=== PATIENT | female | born 1990 | race Asian ===

== ENCOUNTER 2017-03-02 20:56 | Emergency (ER) | payer BC ==
[~2017-03-02] VITALS: Ht 157.5 cm; Wt 56.7 kg
[2017-03-02 21:03] VITALS: BP 128/87
--- NOTE | 2017-03-02 21:35 | PHYS DOC ---
Past Medical History Past Medical History: No Pertinent History Past Surgical History: Alcohol Use: None Drug Use: None Adult General Chief Complaint Chief Complaint: ABDOMINAL PAIN HPI HPI Patient is a 26 year old female who presents with complaint of lower abdominal pain and pelvic pain that started earlier today. Patient states that she is having dull constant pain which travels into her back. Patient states that she has had intermittent back pain in the past but has not had associated pelvic pain like she is experiencing at this time. Patient rates her pain currently as 7 out of 10. Patient does admit that she has had abnormal vaginal discharge but denies any abnormal vaginal bleeding. Patient states that her last menstrual period ended one week ago. Patient has not had any fevers, constipation, diarrhea, bloody stools. Patient does admit to nausea and vomiting 2 episodes. Patient has not taken any medications to help with her symptoms at this time. Patient denies any known exacerbating factors for her pain. Review of Systems Review of Systems Constitutional: Denies fever or chills [] Eyes: Denies change in visual acuity, redness, or eye pain [] HENT: Denies nasal congestion or sore throat [] Respiratory: Denies cough or shortness of breath [] Cardiovascular: Denies chest pain or edema [] GI: Abdominal pain, nausea, vomiting, denies bloody stools or diarrhea [] : Abnormal vaginal discharge, denies dysuria or hematuria [] Musculoskeletal: Back pain, denies joint pain [] Integument: Denies rash or skin lesions [] Neurologic: Denies headache, focal weakness or sensory changes [] Endocrine: Denies polyuria or polydipsia [] Current Medications Current Medications Current Medications Medications (Trade) Dose Ordered Sig/[facility] Start Time Stop Time Status Last Admin Dose Admin Fluconazole (Diflucan) 150 mg 1X ONCE 03/02/17 23:00 03/02/17 23:01 Ondansetron HCl (Zofran) 4 mg 1X ONCE 03/02/17 23:00 03/02/17 23:01 Allergies Allergies Allergies Coded Allergies Type Severity Reaction Last Updated Verified No Known Drug Allergies 03/02/17 No Physical Exam Physical Exam Constitutional: Well developed, well nourished, no acute distress, non-toxic appearance. [] HENT: Normocephalic, atraumatic, bilateral external ears normal, oropharynx moist, no oral exudates, nose normal. [] Eyes: PERRLA, EOMI, conjunctiva normal, no discharge. [] Neck: Normal range of motion, no tenderness, supple, no stridor. [] Cardiovascular:Heart rate regular rhythm, no murmur [] Lungs & Thorax: Bilateral breath sounds clear to auscultation [] Abdomen: Bowel sounds normal, soft, no tenderness, no masses, no pulsatile masses. Pelvic: Normal external exam, clearish vaginal discharge present in vaginal canal, no vaginal bleeding, no cervical motion tenderness, midline tenderness on bimanual exam, no adnexal tenderness. [] Skin: Warm, dry, no erythema, no rash. [] Back: No tenderness, no CVA tenderness. [] Extremities: No tenderness, no cyanosis, no clubbing, ROM intact, no edema. [] Neurologic: Alert and oriented X 3, normal motor function, normal sensory function, no focal deficits noted. [] Current Patient Data Vital Signs Vital Signs Date Time Temp Pulse Resp B/P Pulse Ox O2 Delivery O2 Flow Rate FiO2 03/02/17 21:03 97.5 72 16 128/87 99 Room Air 97.5 Lab Values Laboratory Tests Test 03/02/17 20:53 03/02/17 21:45 POC Urine HCG, Qualitative Hcg negative (Negative) Urine Collection Type Unknown Urine Color Yellow Urine Clarity Clear Urine pH 6.0 Urine Specific [place] 1.020 Urine Protein Negativemg/dL (NEG-TRACE) Urine Glucose (UA) Negativemg/dL (NEG) Urine Ketones (Stick) Negativemg/dL (NEG) Urine Blood Negative (NEG) Urine Nitrite Negative (NEG) Urine Bilirubin Negative (NEG) Urine Urobilinogen Dipstick 0.2mg/dL (0.2 mg/dL) Urine Leukocyte Esterase Negative (NEG) Urine RBC 0/HPF (0-2) Urine WBC 0/HPF (0-4) Urine Squamous Epithelial Cells Mod/LPF Urine Bacteria 0/HPF (0-FEW) Urine Mucus Slight/LPF Urine Yeast Present/HPF Microbiology 03/02/17 Wet Prep - Final, Complete Microbiology 03/02/17 Wet Prep - Final, Complete EKG EKG Not performed [] Radiology/Procedures Radiology/Procedures Not performed [] Course & Med Decision Making Course & Med Decision Making Pertinent Labs and Imaging studies reviewed. (See chart for details) Patient's wet prep was positive for candidiasis. Patient treated with Diflucan in the emergency department. The patient's exam is benign and the patient's vital signs are stable at this time. Patient will be treated as outpatient for her symptoms with recommended follow-up in 2-3 days if symptoms are not improving and return to emergency department for any worsening symptoms. Patient voiced understanding and in agreement with treatment plan. Dragon Disclaimer Dragon Disclaimer This electronic medical record was generated, in whole or in part, using a voice recognition dictation system. Departure Departure Impression: Primary Impression: Vaginal candidiasis Additional Impressions: Nausea and vomiting Abdominal pain Disposition: HOME, SELF-CARE Condition: IMPROVED Referrals: ROSI CALL MD (PCP) Patient Instructions: Abdominal Pain (Nonspecific), Candidal Vulvovaginitis, [id number], Nausea and Vomiting Additional Instructions: Follow-up with your primary doctor in 2-3 days. Return to the emergency department for any worsening symptoms. Scripts Ibuprofen 600 Mg [id number] Mg PO PRN Q6HRS PRN INFLAMMATION #30 TAB Prov:ELSI ARREDONDO MD 03/02/17 Ondansetron (Zofran Odt)4 Mg Tab.rapdis1 Tab SL Q8HRS #15 TAB Prov:ELSI ARREDONDO MD 03/02/17 Dicyclomine Hcl (Bentyl)10 Mg Capsule1 Cap PO TID #30 CAP Ref 0 Prov:ELSI ARREDONDO MD 03/02/17 Problem Qualifiers Additional Impressions: Nausea and vomiting Vomiting type: unspecified Vomiting Intractability: non-intractable Qualified Code: R11.2 - Nausea with vomiting, unspecified Abdominal pain Abdominal location: lower abdomen, unspecified Qualified Code: R10.30 - Lower abdominal pain, unspecified ELSI ARREDONDO MD Mar 02, 2017 21:35
[2017-03-02 21:55] LABS: BILIRUBIN,URINE NEGATIVE (NEG); GLUCOSE,URINE NEGATIVE (NEG); NITRITE,URINE NEGATIVE (NEG); PROTEIN,URINE NEGATIVE (NEG-TRACE); UROBILINOGEN,URINE 0.2 mg/dL (0.2 mg/dL)
[2017-03-02 22:08] LABS: BACTERIA,URINE 0 /HPF (0-FEW); RBC,URINE 0 /HPF (0-2); SQUAMOUS EPITHELIAL CELL,UR MOD /LPF; WBC,URINE 0 /HPF (0-4); YEAST,URINE PRESENT /HPF
[2017-03-02] MEDS ORDERED: ONDA4TAB10 SL (22:30)
[2017-03-02] MEDS ORDERED: IBUP-1007 PO (22:30)
[2017-03-02] MEDS ORDERED: DICY10CA53 PO (22:30)
[2017-03-02] MEDS ORDERED: ONDANSETRON PF 4 MG/2 ML VIAL. IV ONE (23:00)
[2017-03-02] MEDS ORDERED: FLUCONAZOLE 100 MG TABLET. PO ONE (23:00)
[2017-03-02] MEDS ORDERED: ONDANSETRON ODT 4 MG TAB.RAPDIS. PO ONE (23:00)
== END 2017-03-02 22:57 | disposition home or self-care (01) ==
LOC: ER 20:56
DX: B37.3 Candidiasis of vulva and vagina (principal); R11.2 Nausea with vomiting, unspecified
CPT/HCPCS: 81001; 81025; 99284; Q0111; Q0162; 87491; 87591

== ENCOUNTER 2019-05-14 17:31 | Emergency (ER) | payer BC ==
[~2019-05-14] VITALS: Ht 157.5 cm; Wt 62.6 kg
[~2019-05-14 17:31] MED LIST: DICY10CA53 PO; IBUP-1007 PO; ONDA4TAB10 SL
[2019-05-14 17:39] VITALS: BP 148/88
[2019-05-14] MEDS ORDERED: PRED20TA PO (18:04)
--- NOTE | 2019-05-14 18:04 | PHYS DOC ---
Past Medical History Past Medical History: No Pertinent History (RADHA GUY APRN) Past Surgical History: (RADHA GUY APRN) Past Surgical History: Knee Replacement (NADIR JOHNSON DO) Alcohol Use: None Drug Use: None (RADHA GUY APRN) Adult General Chief Complaint Chief Complaint: ITCHING HPI HPI Patient is a 28 year old female, accompanied by her family member, with complaints of a flat red rash on her legs that has spread to her entire body over the last week. Patient states that the rash is very itchy, she denies any new environmental exposures, new perfumes, new detergents, new foods, or new medications. She states she has been taking Benadryl [id number] 25 mg tablets for relief of itching with little help. Patient denies any fever, cough, shortness of breath, tongue swelling, recent travel, or chest pain. She denies any pain at this time, her only complaint is itching and rash. (RADHA GUY APRN) Review of Systems Review of Systems Constitutional: Denies fever or chills [] Eyes: Denies change in visual acuity, redness, or eye pain [] HENT: Denies nasal congestion or sore throat [] Respiratory: Denies cough or shortness of breath [] Cardiovascular: No additional information not addressed in HPI [] GI: Denies abdominal pain, nausea, or vomiting, Musculoskeletal: Denies back pain or joint pain [] Integument: see history of present illness Neurologic: Denies headache, focal weakness or sensory changes [] Complete systems were reviewed and found to be within normal limits, except as documented in this note. (RADHA GUY APRN) Current Medications Current Medications Current Medications Medications (Trade) Dose Ordered Sig/[facility] Start Time Stop Time Status Last Admin Dose Admin Dexamethasone Sodium Phosphate (Decadron) 10 mg 1X ONCE 05/14/19 18:15 05/14/19 18:16 DC 05/14/19 18:17 10 MG (NADIR JOHNSON DO) Allergies Allergies Allergies Coded Allergies Type Severity Reaction Last Updated Verified No Known Drug Allergies 03/02/17 No (NADIR JOHNSON DO) Physical Exam Physical Exam Constitutional: Well developed, well nourished, no acute distress, non-toxic appearance. [] HENT: Normocephalic, atraumatic, bilateral external ears normal, oropharynx moist, no oral exudates, nose normal. [] Eyes: PERRLA, conjunctiva normal, no discharge. [] Neck: Normal range of motion, no tenderness, supple, no stridor. [] Cardiovascular:Heart rate regular rhythm, no murmur [] Lungs & Thorax: Bilateral breath sounds clear to auscultation [] Skin: Warm, dry; diffuse flat red rash consistent with dry skin dermatitis noted to extremities 4 trunk and back, no vesicles, no urticaria Extremities: No tenderness, no cyanosis, no clubbing, ROM intact, no edema. [] Neurologic: Alert and oriented X 3, normal motor function, normal sensory function, no focal deficits noted. [] Psychologic: Affect normal, judgement normal, mood normal. [] (RADHA GUY APRN) Current Patient Data Vital Signs Vital Signs Date Time Temp Pulse Resp B/P (MAP) Pulse Ox O2 Delivery O2 Flow Rate FiO2 05/14/19 17:39 98.2 99 18 148/88 (108) 100 Room Air 98.2 (JOHNSONNADIR FRASER DO) EKG EKG [] (RADHA GUY APRN) Radiology/Procedures Radiology/Procedures [] (RADHA GUY APRN) Course & Med Decision Making Course & Med Decision Making Pertinent Labs and Imaging studies reviewed. (See chart for details) [] (RADHA GUY APRN) Dragon Disclaimer Dragon Disclaimer This electronic medical record was generated, in whole or in part, using a voice recognition dictation system. (RADHA GUY APRN) Departure Departure Impression: Primary Impression: Dry skin dermatitis Additional Impression: Pruritic rash Disposition: 01 HOME, SELF-CARE Condition: STABLE Referrals: ROSI CALL MD (PCP) Patient Instructions: Pruritus Additional Instructions: Recommend frequent application of sensitive skin moisturizer. Wash all of her clothing and bedding in fragrance free detergent. Fill the prescription and use it as directed. Continue to take Benadryl as needed for itching. Follow-up with her primary care doctor if the symptoms persist, return to the ER if symptoms worsen. Scripts Prednisone (PREDNISONE) 20 Mg Tablet 2 TAB PO DAILY for 4 Days, #8 TAB 0 Refills begin taking on 05/15/19 Prov: RADHA GUY APRN 05/14/19 Attending Signature Attending Signature I have reviewed the PA/IT TECHNICAL SUPPORT SPECIALIST's note and plan of care. I was available for consultation as needed during the patient's visit in the emergency department. I agree with the clinical impression, plan, and disposition. (NADIR JOHNSON DO) Problem Qualifiers RADHA GUY APRN May 14, 2019 18:04 NADIR JOHNSON DO May 17, 2019 05:43
[2019-05-14] MEDS ORDERED: DEXAMETHASONE SOD PHOS 20 MG/5 ML VIAL. PO ONE (18:15)
== END 2019-05-14 18:21 | disposition home or self-care (01) ==
LOC: ER 17:31
DX: L30.8 Other specified dermatitis (principal); Z98.890 Other specified postprocedural states; Z96.659 Presence of unspecified artificial knee joint
CPT/HCPCS: 99283; J1100